=== PATIENT | female | born 1955 | race Two or more races ===

== ENCOUNTER 2019-01-09 23:40 | Inpatient (IN) | payer BC, OTHER ==
[~2019-01-09] VITALS: Ht 162.6 cm; Wt 64.1 kg
[~2019-01-09 23:40] MED LIST: ASPI-817 PO; CARV3.1260 PO; CLOP75TA28 PO; DONE5TAB46 PO; HYDR-3601 PO; LISI-313 PO; MECL-77 PO; MEMA5TAB14 PO; PARO40TA79 PO; SERT50TA6 PO; TEMA-106 PO
[2019-01-10] VITALS (14 sets, daily range): BP systolic 91–142; BP diastolic 50–76; PULSE 60–94; RESP 14–29; Ht 162.6 cm; Wt 64.1 kg
[2019-01-10] MEDS ORDERED: SOD CHLORIDE 0.9% 1,000 ML IV STA (03:02)
[2019-01-10] MEDS ORDERED: ONDANSETRON 4 MG INJ IV STA (03:02)
[2019-01-10] MEDS ORDERED: KETOROLAC 15 MG INJ IV STA (03:02)
[2019-01-10] MEDS ORDERED: LIDOCAINE 2% VISC 10 ML CUP PO ONE (03:30)
[2019-01-10] MEDS ORDERED: AL HYDROX/MG HYDROX/SIMETH 30 ML CUP PO ONE (03:30)
[2019-01-10] MEDS ORDERED: PIPER-TAZO 3.375 GM IV (PMX) 100 ML IVPB ONE (04:00)
[2019-01-10] MEDS ORDERED: morphine 2 MG INJ IV PRN ×3 (05:00→15:00)
[2019-01-10] MEDS ORDERED: ACETAMINOPHEN 500 MG TAB PO PRN (05:00)
[2019-01-10] MEDS ORDERED: ONDANSETRON 4 MG INJ IV PRN ×3 (05:00→15:30)
[2019-01-10] MEDS ORDERED: NACL 0.9% 3 ML SYG IV SCH (05:00)
[2019-01-10] MEDS ORDERED: D5-NS + KCL 20 MEQ 1,000 ML IV SCH (05:30)
[2019-01-10] MEDS: LISINOPRIL 5 MG TAB PO SCH (09:23)
[2019-01-10] MEDS: ZOLPIDEM 5 MG TAB PO SCH ×2 (09:23→21:00)
[2019-01-10] MEDS: PIPER-TAZO 3.375 GM IV (PMX) 100 ML IVPB SCH ×2 (12:25→17:52)
[2019-01-10] MEDS ORDERED: BUPIVACAINE 0.5%/EPI (SDV) 30 ML INJ ONE (13:12)
[2019-01-10] MEDS ORDERED: LIDOCAINE 1% (MPF) 30 ML INJ ONE (13:12)
[2019-01-10] MEDS ORDERED: SEVOFLURANE 15 MIN ONE (13:20)
[2019-01-10] MEDS ORDERED: PHENYLephrine (100 MCG/ML) 10ML SYG ONE (13:20)
[2019-01-10] MEDS ORDERED: FENTAnyl 50 MCG/ML VIAL ONE (13:21)
[2019-01-10] MEDS ORDERED: ROPIVACAINE 0.2% 20 ML VIAL ONE (13:21)
[2019-01-10] MEDS ORDERED: PROPOFOL 20 ML ONE (13:21)
[2019-01-10] MEDS ORDERED: ROCURONIUM 50 MG INJ ONE (13:21)
[2019-01-10] MEDS ORDERED: CEFAZOLIN 1 GM INJ ONE (13:21)
[2019-01-10] MEDS ORDERED: KETOROLAC 30 MG INJ ONE (14:17)
[2019-01-10] MEDS ORDERED: DEXAMETHASONE 4 MG/ML 5 ML INJ ONE (14:17)
[2019-01-10] MEDS ORDERED: METOCLOPRAMIDE 10 MG INJ ONE (14:17)
[2019-01-10] MEDS ORDERED: ONDANSETRON 4 MG INJ ONE (14:17)
[2019-01-10] MEDS ORDERED: NEOSTIGMINE 3 MG/3 ML SYRINGE ONE (14:46)
[2019-01-10] MEDS ORDERED: GLYCOPYRROLATE 0.4 MG INJ ONE (14:46)
[2019-01-10] MEDS: D5-NS + KCL 20 MEQ 1,000 ML IV SCH ×2 (14:50→16:30)
[2019-01-10] MEDS ORDERED: METOCLOPRAMIDE 10 MG INJ IV PRN ×2 (15:00→15:30)
[2019-01-10] MEDS ORDERED: HYDROmorphONE 0.5 MG/0.5 ML SYG IV PRN (15:00)
[2019-01-10] MEDS ORDERED: ACETAMINOPHEN 325 MG TAB PO PRN (15:00)
[2019-01-10] MEDS ORDERED: HYDROCODONE/APAP (5/325) TAB PO PRN (15:00)
[2019-01-10] MEDS ORDERED: DIPHENHYDRAMINE 25 MG CAP PO PRN (15:00)
[2019-01-10] MEDS ORDERED: KETOROLAC 30 MG INJ IV PRN (15:00)
[2019-01-10] MEDS ORDERED: MEPERIDINE 25 MG INJ IV PRN (15:30)
[2019-01-10] MEDS ORDERED: OXYCODONE/ACETAMINOPHEN (5/325) TAB PO PRN (15:30)
[2019-01-10] MEDS ORDERED: FENTAnyl 50 MCG/ML VIAL IV PRN ×2 (15:30)
[2019-01-10] MEDS ORDERED: hydrALAzine 20 MG INJ IV PRN (15:30)
[2019-01-10] MEDS ORDERED: LABETALOL HCL 20MG INJ IV PRN (15:30)
[2019-01-10] MEDS ORDERED: DIPHENHYDRAMINE 50 MG INJ IV PRN (15:30)
[2019-01-10] MEDS ORDERED: HYDROmorphONE 1 MG/5 ML IV SYRINGE IV PRN ×3 (15:30)
[2019-01-10] MEDS ORDERED: EPHEDrine 25 MG/5 ML SYG IV PRN (15:30)
[2019-01-10] MEDS: FENTAnyl 50 MCG/ML VIAL IV PRN ×3 (15:37→19:59)
[2019-01-11] MEDS: PIPER-TAZO 3.375 GM IV (PMX) 100 ML IVPB SCH ×3 (00:15→12:52)
[2019-01-11] MEDS: D5-NS + KCL 20 MEQ 1,000 ML IV SCH ×2 (00:50→05:29)
[2019-01-11 02:00] VITALS: BP 97/54; PULSE 64; RESP 18
[2019-01-11 08:00] VITALS: BP 107/61; PULSE 78; RESP 18
[2019-01-11 08:58] VITALS: BP 89/53; PULSE 54; RESP 17
[2019-01-11] MEDS: LISINOPRIL 5 MG TAB PO SCH (09:00)
[2019-01-11] MEDS ORDERED: FLU VACC QS 2019-20 (6MOS UP) 0.5 ML SYG IM* ONE (10:00)
[2019-01-11 14:00] VITALS: BP 100/54; PULSE 74; RESP 20
[2019-01-13] MEDS ORDERED: IBUPROFEN 600 MG TAB PO PRN (15:00)
== END 2019-01-11 16:15 | disposition home or self-care (01) | DRG 419 ==
LOC: E/R 23:40 → 5EC 01-10 04:26
PROVIDERS: ADMIT Internal Medicine; ATTEND Internal Medicine
PROC: BF12YZZ Fluoroscopy of Gallbladder using Other Contrast (ICD-10-PCS; 2019-01-10)
PROC: 0FT44ZZ Resection of Gallbladder, Percutaneous Endoscopic Approach (ICD-10-PCS; principal; 2019-01-10 13:00)
DX: K80.00 Calculus of gallbladder with acute cholecystitis without obstruction (principal); I25.10 Atherosclerotic heart disease of native coronary artery without angina pectoris; I10 Essential (primary) hypertension; Z95.5 Presence of coronary angioplasty implant and graft; F32.89 Other specified depressive episodes; F17.200 Nicotine dependence, unspecified, uncomplicated
CPT/HCPCS: 36415; 76705; 80053; 81001; 81003; 83036; 83690; 84484; 85025; 85576; 88304; 90686; 93005; 93306; 96374; 96375; J0690; J1100; J1885; J2270; J2370; J2405; J2543; J2710; J2765; J2795; J3010; J3480; J7030